=== PATIENT | male | born 1955 | race African-American/Black ===

== ENCOUNTER 2016-06-15 13:51 | Inpatient (IN) ==
[2016-06-15] MEDS ORDERED: SODIUM CHLORIDE 0.9% 1,000 ML IV STA (14:24)
[2016-06-15] MEDS ORDERED: PIPERACILLIN/TAZOBACTAM 3,375 MG in SODIUM CHLORIDE 0.9% 100 ML IV STA (14:24)
[2016-06-15] MEDS ORDERED: LEVALBUTEROL 1.25 MG/3 ML NEB RESP TX STA (14:25)
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
[2016-06-15] MEDS ORDERED: PIPERACILLIN/TAZOBACTAM 3,375 MG VIAL IV ONE (15:38)
[2016-06-15 16:39] LABS: Apearance,Urine CLEAR (Clear); Bacteria,Urine Occasional /HPF (Few); Bilirubin,Urine Negative (Negative); Blood, Urine Negative (Negative); Glucose,Urine (UA) Negative (Negative); Ketones,Urine Negative (Negative); Mucus,Urine Occasional /LPF (Occasional); Nitrite,Urine Negative (Negative); Protein,Urine 30 MG/DL; RBC,Urine 6 /HPF (0-4); Squamous Epithelial Cell,Urine Occasional /HPF (0-10); Urine Color Yellow (Yellow); Urine Specific Gravity 1.013 (1.001-1.035); WBC,Urine 22 /HPF (0-6)
[2016-06-15] MEDS ORDERED: SENNA 8.6 MG TABLET PO PRN (17:42)
[2016-06-15] MEDS ORDERED: ONDANSETRON 4 MG/2 ML VIAL IV PRN (17:44)
[2016-06-15] MEDS ORDERED: ERGOCALCIFEROL 50,000 UNIT CAPSULE PO SCH (18:00)
[2016-06-15 18:02] LABS: Calcium 7.9 MG/DL (8.5-10.1); Osmolality,Calculated 284.8 MOS/KG (273-304); Potassium 3.5 MMOL/L (3.5-5.1)
[2016-06-15 18:03] LABS: Basophils % 0.1 % (0.0-0.8); Eosinophils % 0.1 % (0.00-10.9); Hematocrit 41.5 VOL% (42.0-52.0); Hemoglobin 12.4 GM/DL (14.0-18.0); Immature Granulocytes % 1.6 %; Immature Granulocytes Absolute 0.12 #; Lymphocytes # 0.3 10*3/uL (1.4-4.0); Lymphocytes % 3.4 % (21.2-54.2); Mean Corpuscular HGB Conc 29.9 GM/DL (32-36); Mean Corpuscular Hemoglobin 25 PG (27-34); Mean Corpuscular Volume 82.8 FL (87-102); Mean Platelet Volume 11.1 FL (9.6-12.0); Monocytes # 0.2 10*3/uL (0.11-0.8); Monocytes % 3.1 % (1.7-12.7); Neutrophils % 91.7 % (38.7-73.9); Platelet Count 194 T/CUMM (130-400); Red Blood Count 5.01 MC/CUMM (3.8-5.5); Red Cell Distribution Width 16.3 % (9.3-17.3); White Blood Count 7.7 T/CUMM (4-12)
--- NOTE | 2016-06-15 18:10 | XRay Report ---
Portable chest. Indication: Shortness of breath. Comparison: Outside film from earlier today. The heart is enlarged. There is worsening elevation of the right hemidiaphragm. There is development of atelectasis in both lung bases, right greater than left. The pulmonary vasculature is prominent. No pneumothorax. No pleural effusion. Degenerative changes of the spinal column and shoulders. Impression: Cardiomegaly. Venous congestion. Development of basilar atelectasis, worse on the right. PROCEDURE INTERPRETED AT [facility] DEPARTMENT OF RADIOLOGY Final Report Signed by: Dr. Lurdes Wilks
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
[2016-06-15 18:34] LABS: Hypochromasia Slight; Lymphocytes 6 % (20-55); Platelet Estimate Adequate; Polychromasia Slight; Segmented Neutrophils 91 % (50-85); Total Cells Counted 100
[2016-06-15] MEDS: ACETAMINOPHEN 325 MG TABLET PO PRN (19:55)
[2016-06-15] MEDS: SODIUM CHLORIDE 0.9% 1,000 ML IV SCH (21:45)
[2016-06-15] MEDS: PRAVASTATIN 40 MG TABLET PO SCH (21:46)
[2016-06-15] MEDS: METOCLOPRAMIDE 10 MG TABLET PO SCH (21:46)
[2016-06-15] MEDS: MIRTAZAPINE 15 MG TABLET PO SCH (21:46)
[2016-06-15] MEDS: TAMSULOSIN 0.4 MG CAPSULE PO SCH (21:46)
[2016-06-15] MEDS: BACLOFEN 10 MG TABLET PO SCH (21:46)
[2016-06-15] MEDS: PREGABALIN 100 MG CAPSULE PO SCH (21:46)
[2016-06-15] MEDS: DIAZEPAM 5 MG TABLET PO SCH (21:46)
[2016-06-15] MEDS: LEVOFLOXACIN INJ 750 MG in PREMIX 1 EACH IV SCH (21:47)
[2016-06-15] MEDS: DANTROLENE 25 MG CAPSULE PO SCH (21:48)
[2016-06-15] MEDS ORDERED: SODIUM PHOSPHATE ENEMA 133 ML BOTTLE RECTAL PRN (22:43)
[2016-06-15] MEDS: VANCOMYCIN INJ 1,500 MG in SODIUM CHLORIDE 0.9% 500 ML IV SCH (23:53)
[2016-06-16] MEDS: PIPERACILLIN/TAZOBACTAM 3,375 MG in SODIUM CHLORIDE 0.9% 100 ML IV SCH ×4 (02:57→23:32)
[2016-06-16] MEDS: SODIUM CHLORIDE 0.9% 1,000 ML IV SCH (02:57)
[2016-06-16 05:36] LABS: Basophils % 0.2 % (0.0-0.8); Eosinophils % 0.2 % (0.00-10.9); Hematocrit 37.4 VOL% (42.0-52.0); Hemoglobin 11.6 GM/DL (14.0-18.0); Immature Granulocytes % 2.2 %; Immature Granulocytes Absolute 0.14 #; Lymphocytes # 0.4 10*3/uL (1.4-4.0); Lymphocytes % 6.5 % (21.2-54.2); Mean Corpuscular Hemoglobin 25 PG (27-34); Mean Corpuscular Volume 80.6 FL (87-102); Mean Platelet Volume 10.7 FL (9.6-12.0); Monocytes # 0.4 10*3/uL (0.11-0.8); Monocytes % 6.2 % (1.7-12.7); NRBC # 0.03 10*3/uL; Neutrophils # 5.5 10*3/uL (1.4-7.4); Neutrophils % 84.7 % (38.7-73.9); Platelet Count 180 T/CUMM (130-400); Red Blood Count 4.64 MC/CUMM (3.8-5.5); Red Cell Distribution Width 16.2 % (9.3-17.3); White Blood Count 6.5 T/CUMM (4-12)
[2016-06-16 06:08] LABS: Calcium 8.4 MG/DL (8.5-10.1); Potassium 3.3 MMOL/L (3.5-5.1)
[2016-06-16] MEDS ORDERED: POTASSIUM CHLORIDE 20 MEQ/15 ML UDCUP PER TUBE ONE (08:30)
[2016-06-16] MEDS: LINACLOTIDE 145 MCG CAPSULE PO SCH (10:00)
[2016-06-16] MEDS: PREGABALIN 100 MG CAPSULE PO SCH ×2 (10:01→20:39)
[2016-06-16] MEDS: BACLOFEN 10 MG TABLET PO SCH ×4 (10:01→20:39)
[2016-06-16] MEDS: DULoxetine 30 MG CAPSULE PO SCH (10:02)
[2016-06-16] MEDS: TAMSULOSIN 0.4 MG CAPSULE PO SCH ×2 (10:06→20:39)
[2016-06-16] MEDS: ACETAMINOPHEN 325 MG TABLET PO PRN (10:06)
--- NOTE | 2016-06-16 10:11 | Hospitalist Progress Note ---
Assessment and Plan (1) Pneumonia Status: Acute Assessment and plan: Follow-up blood cultures follow-up sputum culture Follow-up urine antigens Continue Levaquin, Zosyn, vancomycin Current Visit: Yes (2) Quadriplegia Status: Chronic Current Visit: Yes (3) Dehydration Status: Acute Assessment and plan: Continue IV fluids Current Visit: Yes (4) Diabetes mellitus Status: Chronic Assessment and plan: Sliding scale insulin and Accu-Cheks. Current Visit: Yes Qualifiers: Diabetes mellitus type: type 2 Hospitalist: Subjective Interval history: Patient seen and examined. He continued to have fever last night. He has been started on broad-spectrum antibiotics to cover aspiration and healthcare associated pneumonia given his right lower lobe infiltrate. He reports feeling better this morning. No acute events overnight except for fever spikes. Exam - Constitutional Vitals: Period Temp Pulse Resp BP Sys/Archer Pulse Ox Last 24 Hr 97.3 F-101.7 F 108-129 18-20 82-128/43-69 90-100 General appearance: no acute distress - Head Head exam: Present: normal inspection, normocephalic - Eye Eye exam: Present: EOMI - ENT ENT exam: Present: normal oropharynx - Neck Neck exam: Present: normal inspection - Respiratory Respiratory exam: Present: rhonchi (RLL) - Cardiovascular Cardiovascular exam: Present: tachycardia - GI/Abdominal GI/Abdominal exam: Present: normal bowel sounds, soft. Absent: tenderness, rebound - Extremities Exam Extremities exam: Present: other (Quadriplegic). Absent: edema - Neurological Exam Neurological exam: Present: alert, oriented X3 - Psychiatric Psychiatric exam: Present: normal affect, normal mood - Skin Skin exam: Present: normal color, warm, dry Results - Labs CBC & BMP: 06/16/16 04:59 06/16/16 04:59 Lab Results: I have reviewed the past 24 hour labs - Diagnostic Findings Procedure: Chest x-ray: image reviewed by me, report reviewed by me Quality Measures - VTE Contraindication to Pharmacological VTE Prophylaxis: Already on Theraputic Agent , No Prophylaxis Needed
[2016-06-16] MEDS: DANTROLENE 25 MG CAPSULE PO SCH ×3 (12:18→20:40)
[2016-06-16] MEDS: VANCOMYCIN INJ 1,500 MG in SODIUM CHLORIDE 0.9% 500 ML IV SCH ×2 (17:03→22:06)
[2016-06-16] MEDS: PRAVASTATIN 40 MG TABLET PO SCH (20:39)
[2016-06-16] MEDS: DIAZEPAM 5 MG TABLET PO SCH (20:39)
[2016-06-16] MEDS: METOCLOPRAMIDE 10 MG TABLET PO SCH (20:39)
[2016-06-16] MEDS: MIRTAZAPINE 15 MG TABLET PO SCH (20:40)
[2016-06-16] MEDS: LEVOFLOXACIN INJ 750 MG in PREMIX 1 EACH IV SCH (22:04)
[2016-06-17] MEDS: VANCOMYCIN INJ 1,500 MG in SODIUM CHLORIDE 0.9% 500 ML IV SCH ×2 (06:25→19:24)
[2016-06-17] MEDS: SODIUM CHLORIDE 0.9% 1,000 ML IV SCH ×2 (06:25→13:48)
[2016-06-17] MEDS: TAMSULOSIN 0.4 MG CAPSULE PO SCH ×2 (09:12→21:28)
[2016-06-17] MEDS: DULoxetine 30 MG CAPSULE PO SCH (09:12)
[2016-06-17] MEDS: LINACLOTIDE 145 MCG CAPSULE PO SCH (09:12)
[2016-06-17] MEDS: BACLOFEN 10 MG TABLET PO SCH ×4 (09:12→21:27)
[2016-06-17] MEDS: PREGABALIN 100 MG CAPSULE PO SCH ×2 (09:13→21:27)
[2016-06-17] MEDS: DANTROLENE 25 MG CAPSULE PO SCH ×3 (09:14→21:29)
[2016-06-17] MEDS ORDERED: DESITIN 4OZ/NYSTATIN 15 GRAM MIXTURE PASTE TOP PRN (09:49)
[2016-06-17] MEDS: PIPERACILLIN/TAZOBACTAM 3,375 MG in SODIUM CHLORIDE 0.9% 100 ML IV SCH ×2 (09:55→17:00)
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
[2016-06-17 13:24] LABS: INR 1.5; PT Patient Result 16.6 SECS
[2016-06-17] MEDS: METOCLOPRAMIDE 10 MG TABLET PO SCH (21:27)
[2016-06-17] MEDS: POLYETHYLENE GLYCOL POWDER 17 GM PACK PO SCH (21:27)
[2016-06-17] MEDS: PRAVASTATIN 40 MG TABLET PO SCH (21:27)
[2016-06-17] MEDS: DIAZEPAM 5 MG TABLET PO SCH (21:27)
[2016-06-17] MEDS: MIRTAZAPINE 15 MG TABLET PO SCH (21:27)
[2016-06-17] MEDS: WARFARIN 3 MG TABLET PO SCH (21:27)
[2016-06-17] MEDS: LEVOFLOXACIN INJ 750 MG in PREMIX 1 EACH IV SCH (21:28)
[2016-06-18] MEDS: PIPERACILLIN/TAZOBACTAM 3,375 MG in SODIUM CHLORIDE 0.9% 100 ML IV SCH ×3 (01:54→17:04)
[2016-06-18 05:45] LABS: Eosinophils % 1.1 % (0.00-10.9); Hematocrit 32.9 VOL% (42.0-52.0); Hemoglobin 10.1 GM/DL (14.0-18.0); Immature Granulocytes % 1.9 %; Immature Granulocytes Absolute 0.07 #; Lymphocytes # 0.9 10*3/uL (1.4-4.0); Lymphocytes % 24.6 % (21.2-54.2); Mean Corpuscular HGB Conc 30.7 GM/DL (32-36); Mean Corpuscular Hemoglobin 24 PG (27-34); Mean Corpuscular Volume 79.5 FL (87-102); Mean Platelet Volume 10.2 FL (9.6-12.0); Monocytes # 0.3 10*3/uL (0.11-0.8); Monocytes % 6.6 % (1.7-12.7); Neutrophils # 2.5 10*3/uL (1.4-7.4); Neutrophils % 65.8 % (38.7-73.9); Platelet Count 161 T/CUMM (130-400); Red Blood Count 4.14 MC/CUMM (3.8-5.5); Red Cell Distribution Width 16.6 % (9.3-17.3); White Blood Count 3.8 T/CUMM (4-12)
[2016-06-18 06:13] LABS: Magnesium 2.1 MG/DL (1.8-2.4)
[2016-06-18 06:14] LABS: Potassium 3.2 MMOL/L (3.5-5.1)
--- NOTE | 2016-06-18 07:49 | XRay Report ---
Exam: XR chest 1V portable Date: 06/18/2016 4:00 AM Indication: Pneumonia Comparison: 06/15/2016 Technical: AP portable Findings: External cardiac leads are present. Previous cervical fusion present. Oxygen tubing superimposes exam. Platelike atelectatic change present in the right and left base. Borderline cardiac enlargement. No pneumothorax. Small tiny nodes present in the mediastinum on the left. Impression: 1. Platelike atelectatic change in both bases 2. Mild cardiac enlargement without decompensation 3. Previous cervical fusion PROCEDURE INTERPRETED AT [facility] DEPARTMENT OF RADIOLOGY Final Report Signed by: Dr. Олег Vargas
[2016-06-18] MEDS: VANCOMYCIN INJ 1,500 MG in SODIUM CHLORIDE 0.9% 500 ML IV SCH (10:13)
[2016-06-18] MEDS: TAMSULOSIN 0.4 MG CAPSULE PO SCH ×2 (10:14→20:54)
[2016-06-18] MEDS: LINACLOTIDE 145 MCG CAPSULE PO SCH (10:14)
[2016-06-18] MEDS: DULoxetine 30 MG CAPSULE PO SCH (10:14)
[2016-06-18] MEDS: FUROSEMIDE 40 MG TABLET PO SCH ×2 (10:15→20:54)
[2016-06-18] MEDS: PREGABALIN 100 MG CAPSULE PO SCH ×2 (10:15→20:55)
[2016-06-18] MEDS: DANTROLENE 25 MG CAPSULE PO SCH ×3 (10:16→20:55)
[2016-06-18] MEDS: BACLOFEN 20 MG TABLET PO SCH ×4 (10:34→20:54)
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
[2016-06-18] MEDS ORDERED: SPIRONOLACTONE 25 MG TABLET PO ONE (11:00)
[2016-06-18] MEDS: BACLOFEN 10 MG TABLET PO SCH (11:15)
[2016-06-18] MEDS: POLYETHYLENE GLYCOL POWDER 17 GM PACK PO SCH (20:54)
[2016-06-18] MEDS: PRAVASTATIN 40 MG TABLET PO SCH (20:54)
[2016-06-18] MEDS: MIRTAZAPINE 15 MG TABLET PO SCH (20:54)
[2016-06-18] MEDS: DIAZEPAM 5 MG TABLET PO SCH (20:54)
[2016-06-18] MEDS: AMOXICILLIN/CLAV 875 MG TABLET PO SCH (20:54)
[2016-06-18] MEDS: WARFARIN 3 MG TABLET PO SCH (20:55)
[2016-06-18] MEDS: METOCLOPRAMIDE 10 MG TABLET PO SCH (20:55)
[2016-06-18] MEDS: SODIUM CHLORIDE 0.9% 1,000 ML IV SCH ×2 (23:00→23:01)
[2016-06-19] MEDS: PIPERACILLIN/TAZOBACTAM 3,375 MG in SODIUM CHLORIDE 0.9% 100 ML IV SCH ×2 (00:15→09:21)
[2016-06-19] MEDS: DANTROLENE 25 MG CAPSULE PO SCH ×3 (08:48→20:22)
[2016-06-19] MEDS: FUROSEMIDE 40 MG TABLET PO SCH ×2 (08:49→20:22)
[2016-06-19] MEDS: PREGABALIN 100 MG CAPSULE PO SCH ×2 (08:49→20:20)
[2016-06-19] MEDS: BACLOFEN 20 MG TABLET PO SCH ×4 (08:49→20:20)
[2016-06-19] MEDS: DULoxetine 30 MG CAPSULE PO SCH (08:49)
[2016-06-19] MEDS: AMOXICILLIN/CLAV 875 MG TABLET PO SCH ×2 (08:49→20:19)
[2016-06-19] MEDS: TAMSULOSIN 0.4 MG CAPSULE PO SCH ×2 (08:49→20:20)
[2016-06-19] MEDS: LINACLOTIDE 145 MCG CAPSULE PO SCH (09:21)
[2016-06-19] MEDS: SODIUM PHOSPHATE ENEMA 133 ML BOTTLE RECTAL SCH (09:22)
[2016-06-19] MEDS ORDERED: POTASSIUM CHLORIDE 20 MEQ/15 ML UDCUP PER TUBE ONE (12:48)
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
[2016-06-19] MEDS: PRAVASTATIN 40 MG TABLET PO SCH (20:19)
[2016-06-19] MEDS: MIRTAZAPINE 15 MG TABLET PO SCH (20:20)
[2016-06-19] MEDS: WARFARIN 3 MG TABLET PO SCH (20:20)
[2016-06-19] MEDS: DIAZEPAM 5 MG TABLET PO SCH (20:20)
[2016-06-19] MEDS: METOCLOPRAMIDE 10 MG TABLET PO SCH (20:21)
[2016-06-19] MEDS: POLYETHYLENE GLYCOL POWDER 17 GM PACK PO SCH (20:21)
[2016-06-20] MEDS: LINACLOTIDE 145 MCG CAPSULE PO SCH (09:04)
[2016-06-20] MEDS: TAMSULOSIN 0.4 MG CAPSULE PO SCH ×2 (09:04→21:40)
[2016-06-20] MEDS: BACLOFEN 20 MG TABLET PO SCH ×4 (09:04→21:41)
[2016-06-20] MEDS: FUROSEMIDE 40 MG TABLET PO SCH ×2 (09:04→21:41)
[2016-06-20] MEDS: DANTROLENE 25 MG CAPSULE PO SCH ×3 (09:05→21:42)
[2016-06-20] MEDS: DULoxetine 30 MG CAPSULE PO SCH (09:05)
[2016-06-20] MEDS: PREGABALIN 100 MG CAPSULE PO SCH ×2 (09:05→21:40)
[2016-06-20] MEDS: AMOXICILLIN/CLAV 875 MG TABLET PO SCH ×2 (09:05→21:42)
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
--- NOTE | 2016-06-20 17:25 | Event Note ---
I was asked to clarify the patient's home medications and diagnoses for which those medications were prescribed. I have reviewed the patient's medical chart , provide my best opinion regarding his home medications. Patient is currently taking Remeron, valium, cymbalta, and lyrica. 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
[2016-06-20] MEDS: MIRTAZAPINE 15 MG TABLET PO SCH (21:40)
[2016-06-20] MEDS: DIAZEPAM 5 MG TABLET PO SCH (21:40)
[2016-06-20] MEDS: PRAVASTATIN 40 MG TABLET PO SCH (21:40)
[2016-06-20] MEDS: WARFARIN 3 MG TABLET PO SCH (21:41)
[2016-06-20] MEDS: METOCLOPRAMIDE 10 MG TABLET PO SCH (21:41)
[2016-06-20] MEDS: POLYETHYLENE GLYCOL POWDER 17 GM PACK PO SCH (22:54)
[2016-06-21 03:52] LABS: Basophils % 0.2 % (0.0-0.8); Eosinophils # 0.1 10*3/uL (0.0-0.87); Eosinophils % 1.5 % (0.00-10.9); Hematocrit 37.2 VOL% (42.0-52.0); Hemoglobin 11.6 GM/DL (14.0-18.0); Immature Granulocytes % 0.8 %; Immature Granulocytes Absolute 0.05 #; Lymphocytes # 1.3 10*3/uL (1.4-4.0); Lymphocytes % 21.2 % (21.2-54.2); Mean Corpuscular HGB Conc 31.2 GM/DL (32-36); Mean Corpuscular Hemoglobin 25 PG (27-34); Mean Corpuscular Volume 78.5 FL (87-102); Mean Platelet Volume 9.7 FL (9.6-12.0); Monocytes # 0.4 10*3/uL (0.11-0.8); Neutrophils # 4.2 10*3/uL (1.4-7.4); Neutrophils % 70.3 % (38.7-73.9); Platelet Count 166 T/CUMM (130-400); Red Blood Count 4.74 MC/CUMM (3.8-5.5); Red Cell Distribution Width 16.7 % (9.3-17.3)
[2016-06-21 04:06] LABS: INR 1.9
[2016-06-21 04:12] LABS: PT Patient Result 21.5 SECS
[2016-06-21] MEDS: LINACLOTIDE 145 MCG CAPSULE PO SCH (08:40)
[2016-06-21] MEDS: DULoxetine 30 MG CAPSULE PO SCH (08:40)
[2016-06-21] MEDS: BACLOFEN 20 MG TABLET PO SCH ×3 (08:40→17:08)
[2016-06-21] MEDS: FUROSEMIDE 40 MG TABLET PO SCH (08:40)
[2016-06-21] MEDS: DANTROLENE 25 MG CAPSULE PO SCH ×2 (08:40→14:26)
[2016-06-21] MEDS: AMOXICILLIN/CLAV 875 MG TABLET PO SCH (08:40)
[2016-06-21] MEDS: PREGABALIN 100 MG CAPSULE PO SCH (08:40)
[2016-06-21] MEDS: TAMSULOSIN 0.4 MG CAPSULE PO SCH (08:40)
[2016-06-21] MEDS: SODIUM PHOSPHATE ENEMA 133 ML BOTTLE RECTAL SCH (08:41)
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
[2016-06-21 15:31] VITALS: BP 115/65
== END 2016-06-21 17:00 | DRG 177 ==
LOC: EDBD → EDUNIT# → N.ED 13:51 → N.EDINP 15:57 → N.TELEN 17:13
PROVIDERS: ADMIT Family Medicine; ATTEND Family Medicine